=== PATIENT | male | born 1960 | race Caucasian/White ===

== ENCOUNTER 2020-12-28 15:00 | Outpatient (CLI) | payer OTHER, SELFPAY | END 2020-12-28 15:01 | disposition home or self-care (01) | LOC: ANHCOVIDVC 15:00 | PROVIDERS: PCP Internal Medicine | DX: Z23 Encounter for immunization (principal) | CPT/HCPCS: 0001A; 91300 ==

== ENCOUNTER 2021-01-18 14:57 | Outpatient (CLI) | payer OTHER, SELFPAY | END 2021-01-18 14:58 | disposition home or self-care (01) | LOC: ANHCOVIDVC 14:57 | PROVIDERS: PCP Internal Medicine | DX: Z23 Encounter for immunization (principal) | CPT/HCPCS: 0002A; 91300 ==

== ENCOUNTER → 2021-05-17 15:49 | Outpatient (CLI) | payer OTHER, SELFPAY ==
--- NOTE | ~2021-05-17 | CT_ITS ---
EXAMINATION:CT lung screening DATE: 05/17/2021 16:01 INDICATION: Personal history of nicotine dependence. TECHNIQUE: Computed tomography (CT) of the chest was performed without intravenous contrast. Automate d exposure control and iterative reconstruction technique were employed. The dose-length product (DLP ) was 177.11 mGy-cm. COMPARISON: Chest CT 09/22/2018 FINDINGS: There is mild emphysema. A calcified left lung nodule is consistent with old granulomatous disease. There is mild atelectasis in lingula. No pleural effusion. The heart size is normal. There a re coronary artery calcifications. No pericardial effusion. There are changes of cholecystectomy. The re is mild thoracic spondylosis. There is mild chronic anterior wedging of multiple midthoracic verte bral bodies. IMPRESSION: 1. Lung-RADS category 1: Negative. Continue annual screening with noncontrast low-dose chest CT in 12 months. Reviewed, dictated and finalized at location A. IMPRESSION: 1. Lung-RADS category 1: Negative. Continue annual screening with noncontrast l ow-dose chest CT in 12 months.
== END ==
PROVIDERS: PCP Internal Medicine; Visit Provider Internal Medicine
DX: Z12.2 Encounter for screening for malignant neoplasm of respiratory organs (principal); Z87.891 Personal history of nicotine dependence
CPT/HCPCS: 71271

== ENCOUNTER → 2021-07-09 10:35 | Outpatient (REF) | payer OTHER, SELFPAY | LOC: ANHLAB 10:35 | PROVIDERS: PCP Internal Medicine; Visit Provider Nurse Practitioner | DX: D49.2 Neoplasm of unspecified behavior of bone, soft tissue, and skin (principal) | CPT/HCPCS: 88305 ==

== ENCOUNTER → 2021-08-05 09:56 | Outpatient (CLI) | payer OTHER, SELFPAY ==
[2021-08-05 12:45] LABS: Influenza Control Positive
[2021-08-05 18:36] LABS: SARS-CoV-2 RNA PCR Negative
== END ==
PROVIDERS: PCP Internal Medicine; Visit Provider Internal Medicine
DX: R05.9 Cough, unspecified (principal); R52 Pain, unspecified; Z20.822 Contact with and (suspected) exposure to COVID-19
CPT/HCPCS: 87804; C9803; U0003; U0005

== ENCOUNTER → 2021-08-12 08:16 | Outpatient (CLI) | payer OTHER, SELFPAY ==
[2021-08-12 20:05] LABS: SARS-CoV-2 RNA PCR Negative
== END ==
PROVIDERS: PCP Internal Medicine; Visit Provider Internal Medicine
DX: R68.89 Other general symptoms and signs (principal); Z20.822 Contact with and (suspected) exposure to COVID-19
CPT/HCPCS: C9803; U0003; U0005

== ENCOUNTER 2021-08-13 15:31 | Outpatient (CLI) | payer OTHER, SELFPAY ==
--- NOTE | ~2021-08-13 | XR_ITS ---
XR chest 2V 08/13/2021 15:57 Indication: Cough. Hypertension. Procedure: 2 view chest Comparison: 11/08/2018 Findings: Heart size normal. There is left basilar atelectasis/scarring. No focal pneumonia, edema, p leural effusion or pneumothorax. No acute osseous abnormality. There are cholecystectomy clips. Impression: 1: Left basilar atelectasis/scarring. Reviewed, dictated and finalized at location B. GHT ROUTER Impression: 1: Left basilar atelectasis/scarring.
== END 2021-08-13 15:32 | disposition home or self-care (01) ==
LOC: ANHIMG 15:39
PROVIDERS: PCP Internal Medicine; Visit Provider Internal Medicine
DX: R05.9 Cough, unspecified (principal); R91.8 Other nonspecific abnormal finding of lung field
CPT/HCPCS: 71046

== ENCOUNTER → 2022-04-18 01:38 | Outpatient (CLI) | payer OTHER, SELFPAY ==
[2022-04-18 12:16] LABS: SARS-CoV-2 RNA PCR Negative
== END ==
PROVIDERS: PCP Internal Medicine; Visit Provider Internal Medicine
DX: R68.89 Other general symptoms and signs (principal); Z20.822 Contact with and (suspected) exposure to COVID-19
CPT/HCPCS: C9803; U0003; U0005

== ENCOUNTER → 2022-06-02 14:43 | Outpatient (CLI) | payer OTHER, SELFPAY ==
--- NOTE | ~2022-06-02 | CT_ITS ---
EXAMINATION: CT lung screening DATE: 06/02/2022 15:05 INDICATION: Personal history of tobacco dependence. Lung cancer screening. TECHNIQUE: Computed tomography (CT) of the chest was performed without intravenous contrast. The dose -length product was 202.54 mGy-cm. Automated exposure control and iterative reconstruction technique were employed. COMPARISON: CT dated 05/17/2021 FINDINGS: Heart size normal. No thoracic lymphadenopathy. No significant pleural or pericardial effus ion. Upper abdomen is unremarkable. There are cholecystectomy clips. Calcified granuloma in the left lower lobe. No endobronchial lesions. No pneumothorax. No focal airspace disease. No noncalcified pul monary nodules. Mild thoracic spondylosis. Mild chronic anterior wedging of multiple midthoracic vert ebra.. IMPRESSION: 1. Lung-RADS category 1: Negative. Continue annual screening with noncontrast low-dose chest CT in 12 months. Reviewed, dictated and finalized at location A. IMPRESSION: 1. Lung-RADS category 1: Negative. Continue annual screening with noncontrast l ow-dose chest CT in 12 months.
== END ==
PROVIDERS: PCP Internal Medicine; Visit Provider Internal Medicine
DX: Z12.2 Encounter for screening for malignant neoplasm of respiratory organs (principal); Z87.891 Personal history of nicotine dependence
CPT/HCPCS: 71271

== ENCOUNTER → 2023-07-06 14:44 | Outpatient (CLI) | payer BC, SELFPAY ==
--- NOTE | ~2023-07-06 | CT_ITS ---
EXAMINATION: CT lung screening DATE: 07/06/2023 14:59 INDICATION: Personal history of nicotine dependence TECHNIQUE: Computed tomography (CT) of the chest was performed without intravenous contrast. The dose -length product was 164.87 mGy-cm. Automated exposure control and iterative reconstruction technique were employed. COMPARISON: CT dated 06/02/2022 FINDINGS: No thoracic lymphadenopathy. Heart size normal. No significant pleural or pericardial effus ion. Status post cholecystectomy. Calcified granulomas in the spleen. Mild atherosclerosis. No focal airspace consolidation. No endobronchial lesions. There is emphysema. No pneumothorax. Calcified gran uloma left lower lobe. Mild thoracic spondylosis. Accentuated kyphosis. IMPRESSION: 1. Lung-RADS category 1: Negative. Continue annual screening with noncontrast low-dose chest CT in 12 months. Reviewed, dictated and finalized at location L. IMPRESSION: 1. Lung-RADS category 1: Negative. Continue annual screening with noncontrast l ow-dose chest CT in 12 months.
== END ==
PROVIDERS: PCP Nurse Practitioner; Visit Provider Nurse Practitioner
DX: G45.9 Transient cerebral ischemic attack, unspecified (principal); Z87.891 Personal history of nicotine dependence
CPT/HCPCS: 71271

== ENCOUNTER 2023-07-08 15:37 | Outpatient (CLI) | payer BC, SELFPAY ==
--- NOTE | ~2023-07-08 | US_ITS ---
EXAMINATION: US carotid duplex BI DATE: 07/08/2023 16:23 INDICATION: TIA TECHNIQUE: Grayscale, color Doppler, and pulsed Doppler images of the cervical carotid arteries were obtained. The degree of vessel stenosis is placed in one of the following categories: normal, <50%, 5 0-69%, >=70% but less than near-occlusion, near-occlusion, or total occlusion. Note that percent sten osis relative to normal distal artery lumen diameter is indirectly measured from velocity measurement s as described by Jose, et al. Radiology 2003; 229:340-346. Notes: Normal: Peak systolic velocity <125 centimeters/sec and no plaque <50%. Peak systolic velocity <125 ( EDV <40; ICA/CCA PSV ratio <2.0; used these factors only a tandem lesions or low cardiac output or co ntralateral disease) 50-69 %: PSV 125-230 (EDV 40-100; ratio 2-4) >= 70% but less than near occlusion: PSV greater than 230 (EDV > 100; ratio> 4.0) Near Occlusion: PSV that is variable; markedly narrowed lumen Occlusion: Absent flow on color/spectral Doppler and no lumen on lyn scale. COMPARISON: None. FINDINGS: RIGHT: The right common carotid artery (CCA) peak systolic velocity (PSV) is 69 cm/s. The right internal car otid artery (ICA) PSV is 55 cm/s. The right ICA end-diastolic velocity (EDV) is 26 cm/s. The right IC A/CCA PSV ratio is 0.8. The external carotid artery (ECA) PSV is 49 cm/s. There is antegrade flow in the right vertebral artery. LEFT: The left CCA PSV is 76 cm/s. The left ICA PSV is 52 cm/s. The left ICA EDV is 23 cm/s. The left ICA/C CA PSV ratio is 0.7. The ECA PSV is 46 cm/s. There is antegrade flow in the left vertebral artery. IMPRESSION: 1. Less than 50% stenosis in the right internal carotid artery by sonographic criteria. 2. Less than 50% stenosis in the left internal carotid artery by sonographic criteria. Reviewed, dictated and finalized at location B. IMPRESSION: 1. Less than 50% stenosis in the right internal carotid artery by sonographic qasim santiago. 2. Less than 50% stenosis in the left internal carotid artery by sonographic elías pantoja.
== END 2023-07-08 15:38 | disposition home or self-care (01) ==
PROVIDERS: PCP Nurse Practitioner; Visit Provider Nurse Practitioner
DX: I65.23 Occlusion and stenosis of bilateral carotid arteries (principal)
CPT/HCPCS: 93880

== ENCOUNTER 2024-09-27 01:45 | Day surgery (SDC) | payer BC, SELFPAY ==
[2024-08-26 14:35] VITALS: BMI 30.2
--- NOTE | 2024-09-18 13:28 | SUR.PREOP ---
Called pt to cancel his procedure on 09/20 due to provider availability. Pt rescheduled to 12/13 at 1030.Pt request an earlier date if possible. Told pt we would call if we had a cancellation.
[2024-09-22 15:22] VITALS: BMI 30.2
[2024-09-27] VITALS (8 sets, daily range): BP systolic 122–186; BP diastolic 84–150; PULSE 68–85; RESP 16–20; TEMP 35.9; O2SAT 98–100; BMI 30.2
--- NOTE | 2024-09-27 08:10 | P.PNAN_ITS ---
Anes - Initial Pre Proc Eval Procedure: Operation Date: 09/27/24 09:00 Proposed Procedures p Screening Colonoscopy - Sagar Gomez MD Date/Time: 09/27/24 08:10 Surgeon: Sagar Gomez MD Pre Op Diagnosis: screening malignant neoplasm colon Patient Data Age: 63 Gender: M Height: 1.75 m Weight: 92.7 kg Last Vital Signs Temp 35.9 C L 09/27/24 08:04 Pulse 85 09/27/24 08:04 Resp 20 09/27/24 08:04 BP 173/100 H 09/27/24 08:04 Pulse Ox 100 09/27/24 08:04 O2 Del Method Room Air 09/27/24 08:04 Allergies Allergy/AdvReac Type Severity Reaction Status Date / Time No Known Allergies Allergy Verified 09/27/24 08:02 Home Medications ?Medication ?Instructions ?Recorded ?Confirmed ?Type cholecalciferol (vitamin D3) 250 250 mcg PO DAILY 05/14/22 09/27/24 History mcg (10,000 unit) capsule niacin 500 mg tablet 500 mg PO DAILY 05/14/22 09/27/24 History omega-3 fatty acids-fish oil 360 1 cap PO DAILY 05/14/22 09/27/24 History mg-1,200 mg capsule (Fish Oil) aspirin 81 mg tablet,delayed 81 mg PO DAILY 07/02/23 09/27/24 History release metoprolol succinate 25 mg 25 mg PO DAILY #90 tabs 07/02/23 09/27/24 Rx tablet,extended release 24 hr hydrochlorothiazide 25 mg tablet See Rx Instructions .Route 01/21/24 09/27/24 Rx .COMPLEX #90 tabs pantoprazole 40 mg tablet,delayed See Rx Instructions .Route 04/22/24 09/27/24 Rx release .COMPLEX #90 tabs losartan 100 mg tablet 100 mg PO DAILY #90 tabs 06/27/24 09/27/24 Rx rosuvastatin 20 mg tablet (Crestor) 20 mg PO DAILY #90 tabs 07/08/24 09/27/24 Rx verapamil 240 mg tablet,extended See Rx Instructions .Route 07/13/24 09/27/24 Rx release .COMPLEX #90 tabs alprazolam 1 mg tablet 1 mg PO TID PRN anxiety #90 tabs 08/29/24 09/27/24 Rx mecobalamin (vitamin B12) 5,000 5,000 mcg PO DAILY 08/29/24 09/27/24 History mcg chewable tablet Patient hx anesthesia problems: none Family hx anesthesia problems: none Results Review: All pre-operative results and documents have been reviewed as part of the pre- operative evaluation. [facility] Past Medical History Medical History Tinnitus of both ears Thrombosed external hemorrhoid Family history of diabetes mellitus ETOH abuse Hypogonadism in male Cough Body aches Skin lesion BMI 30.0-30.9,adult Annual physical exam History of TIA (transient ischemic attack) GERD (gastroesophageal reflux disease) Vitamin D deficiency Elevated glucose Encounter for routine adult health examination with abnormal findings Tobacco abuse Hearing loss Encounter for preventive health examination Personal history of nicotine dependence BMI 27.0-27.9,adult Changing skin lesion Abnormal finding of blood chemistry Encounter for special screening examination for neoplasm of prostate BMI 29.0-29.9,adult Encounter for routine adult health examination without abnormal findings Family History Family History Mother Hypertension Social History Social History Smoking status: Former smoker Tobacco type: cigarettes Smoking end date: 04/14/19 Alcohol intake: never Alcohol use details: quit drinking Substance use: never Substance use type: does not use Do You Feel Safe in your Home?: Yes Lack of Transportation: No Lack of Food: Never True Current Housing: I Have Housing Concerned About Future Housing: No Difficulty Paying Gas/Electric Bills: No Difficulty Paying for Meds: No Currently Unemployed: No Education: Trade/Vocational Certificate Difficulty w/ Childcare or Family Care: No Living arrangements: alone Gender identity (if verbalized by the patient): Male Spiritual care concerns: No Anes - Eval Final PreProcedure Day of Procedure 09/27/24 08:10 Patient weight: obese Heart: regular rate and rhythm Lungs: clear to auscultation Airway: Mallampati scale class II Neurological: alert and oriented Last oral intake: >/= 8 hours ASA classification: III Emergent: no Anesthetic plan: proceed Anesthesia type and monitoring: general GIVS and standard monitoring Results Review: All pre-operative results and documents have been reviewed as part of the pre- operative evaluation. Informed Consent: The patient's anesthetic plan and its attendant risks and benefits were discussed with the patient/family/POA. Questions were solicited and answers provided to the satisfaction of the patient/family/POA.
[2024-09-27] MEDS: LACTATED RINGERS 1,000 ML 150 ML IV CONT (08:16)
--- NOTE | 2024-09-27 08:51 | SUR.PREOP ---
Dr. Bunch made aware of elevated bp. Pt very anxious. No new orders.
--- NOTE | 2024-09-27 08:58 | PM.HPGS ---
History of Present Illness History of Present Illness Consent: Risks, benefits, and alternatives have been discussed and questions answered. Patient agrees to proceed with procedure. Chief complaint: screening malignant neoplasm colon Narrative: Ignacio Silvestre is a 63 year old male here for screening colonoscopy Review of Systems Review of Systems: All systems reviewed & are unremarkable except as noted in HPI and below PMFSH Past Medical History Medical History Tinnitus of both ears Thrombosed external hemorrhoid Family history of diabetes mellitus ETOH abuse Hypogonadism in male Cough Body aches Skin lesion BMI 30.0-30.9,adult Annual physical exam History of TIA (transient ischemic attack) GERD (gastroesophageal reflux disease) Vitamin D deficiency Elevated glucose Encounter for routine adult health examination with abnormal findings Tobacco abuse Hearing loss Encounter for preventive health examination Personal history of nicotine dependence BMI 27.0-27.9,adult Changing skin lesion Abnormal finding of blood chemistry Encounter for special screening examination for neoplasm of prostate BMI 29.0-29.9,adult Encounter for routine adult health examination without abnormal findings Family History Family History Mother Hypertension Social History Social History Smoking status: Former smoker Tobacco type: cigarettes Smoking end date: 04/14/19 Alcohol intake: never Alcohol use details: quit drinking Substance use: never Substance use type: does not use Do You Feel Safe in your Home?: Yes Lack of Transportation: No Lack of Food: Never True Current Housing: I Have Housing Concerned About Future Housing: No Difficulty Paying Gas/Electric Bills: No Difficulty Paying for Meds: No Currently Unemployed: No Education: Trade/Vocational Certificate Difficulty w/ Childcare or Family Care: No Living arrangements: alone Gender identity (if verbalized by the patient): Male Spiritual care concerns: No Meds Home Medications and Allergies Home Medications ?Medication ?Instructions ?Recorded ?Confirmed ?Type cholecalciferol (vitamin D3) 250 250 mcg PO DAILY 05/14/22 09/27/24 History mcg (10,000 unit) capsule niacin 500 mg tablet 500 mg PO DAILY 05/14/22 09/27/24 History omega-3 fatty acids-fish oil 360 1 cap PO DAILY 05/14/22 09/27/24 History mg-1,200 mg capsule (Fish Oil) aspirin 81 mg tablet,delayed 81 mg PO DAILY 07/02/23 09/27/24 History release metoprolol succinate 25 mg 25 mg PO DAILY #90 tabs 07/02/23 09/27/24 Rx tablet,extended release 24 hr hydrochlorothiazide 25 mg tablet See Rx Instructions .Route 01/21/24 09/27/24 Rx .COMPLEX #90 tabs pantoprazole 40 mg tablet,delayed See Rx Instructions .Route 04/22/24 09/27/24 Rx release .COMPLEX #90 tabs losartan 100 mg tablet 100 mg PO DAILY #90 tabs 06/27/24 09/27/24 Rx rosuvastatin 20 mg tablet (Crestor) 20 mg PO DAILY #90 tabs 07/08/24 09/27/24 Rx verapamil 240 mg tablet,extended See Rx Instructions .Route 07/13/24 09/27/24 Rx release .COMPLEX #90 tabs alprazolam 1 mg tablet 1 mg PO TID PRN anxiety #90 tabs 08/29/24 09/27/24 Rx mecobalamin (vitamin B12) 5,000 5,000 mcg PO DAILY 08/29/24 09/27/24 History mcg chewable tablet Allergies Allergy/AdvReac Type Severity Reaction Status Date / Time No Known Allergies Allergy Verified 09/27/24 08:02 Vital Signs Vital Signs - 24 hr 09/27/24 08:04 09/27/24 08:40 Temperature 96.7 F L Pulse Rate 85 Respiratory Rate 20 Blood Pressure 173/100 H 185/110 H Pulse Oximetry 100 Oxygen Delivery Room Air Exam Const: General: comfortable and no acute distress HENMT: Face/Nose/Sinus: Normal nares present Eyes: General: appearance normal, both eyes and all related structures Neck: Neck: no JVD Resp: Auscultation: clear to auscultation bilaterally Cardio: Rate: regular rate Rhythm: regular rhythm GI: Inspection: non-distended GI Palp: Yes Soft to palpation Skin: General skin exam: normal color Neuro: General: gait normal Speech: normal speech Extrem: General: normal to inspection Psych: Mental Status: mental status grossly normal Assessment and Plan Assessment and plan (1) Colon cancer screening: Code(s): Z12.11 - Encounter for screening for malignant neoplasm of colon Status: Acute Assessment and Plan: colonoscopy
[2024-09-27] MEDS: hydrALAZINE HCL 20 MG/ML VIAL IV PUSH (09:47)
--- NOTE | 2024-09-27 09:52 | SUR.PHASEII ---
0940: DR GRIDER NOTIFIED OF PT'S POST OP VS: B/P 162/112 HR 67, B/P 186/150 HR 68, B/P 177/114 HR 70. NEW MEDICATION ORDER RECEIVED AND GIVEN PER ORDER. PT AWAKE AND TALKING WITHOUT SYMPTOMS. 1000: UPDATED PT'S DAUGHTER GUSTAVO PER PT REQUEST. 1005: PT BLOOD PRESSURE 146/91, HR 68. DR GRIDER NOTIFIED, ORDER RECEIVED TO DISCHARGE PT. PT DISCHARGED WITH INSTRUCTIONS, STATES UNDERSTANDING.
== END 2024-09-27 10:12 | disposition home or self-care (01) ==
PROVIDERS: PCP Nurse Practitioner; Visit Provider Internal Medicine Gastroenterology
PROC: 0DJD8ZZ Inspection of Lower Intestinal Tract, Via Natural or Artificial Opening Endoscopic (ICD-10-PCS; CPT 45378; principal; 2024-09-27 09:00)
DX: Z12.11 Encounter for screening for malignant neoplasm of colon (principal); D12.2 Benign neoplasm of ascending colon; K63.5 Polyp of colon; K64.8 Other hemorrhoids; K57.30 Diverticulosis of large intestine without perforation or abscess without bleeding; E29.1 Testicular hypofunction; K21.9 Gastro-esophageal reflux disease without esophagitis; E55.9 Vitamin D deficiency, unspecified; E66.9 Obesity, unspecified; Z68.30 Body mass index [BMI] 30.0-30.9, adult; Z79.82 Long term (current) use of aspirin; Z87.891 Personal history of nicotine dependence; Z86.73 Personal history of transient ischemic attack (TIA), and cerebral infarction without residual deficits
CPT/HCPCS: 45385; 88305; J0360; J2003; J2704; J7120

== ENCOUNTER 2024-10-05 14:18 | Outpatient (CLI) | payer BC, SELFPAY ==
--- NOTE | ~2024-10-05 | CT_ITS ---
EXAMINATION:CT lung screening DATE: 10/05/2024 14:33 INDICATION: Personal history of nicotine dependence. Smoker who quit 5 years ago with 23 pack year hi story. TECHNIQUE: Computed tomography (CT) of the chest was performed without intravenous contrast. Automate d exposure control and iterative reconstruction technique were employed. The dose-length product (DLP ) was 146.24 mGy-cm. COMPARISON: Chest CT 07/06/2023 FINDINGS: There is mild emphysema. A calcified left lung nodule is consistent with old granulomatous disease. No pleural effusion. The heart size is normal. No pericardial effusion. There is diffuse hep atic steatosis. There are changes of cholecystectomy. There is mild bilateral gynecomastia. There is mild thoracic spondylosis. There is mild chronic anterior wedging of multiple vertebral bodies. IMPRESSION: 1. Lung-RADS category 1: Negative. Continue annual screening with noncontrast low-dose chest CT in 12 months. Reviewed, dictated and finalized at location B. E ARTIST IMPRESSION: 1. Lung-RADS category 1: Negative. Continue annual screening with noncontrast l ow-dose chest CT in 12 months.
== END 2024-10-05 14:19 | disposition home or self-care (01) ==
LOC: GOSHIMG 14:19
PROVIDERS: PCP Nurse Practitioner; Visit Provider Nurse Practitioner
DX: Z12.2 Encounter for screening for malignant neoplasm of respiratory organs (principal); Z87.891 Personal history of nicotine dependence
CPT/HCPCS: 71271

== ENCOUNTER 2025-01-13 09:30 | Outpatient (RCR) | payer BC, SELFPAY ==
--- NOTE | 2025-01-06 14:36 | OPREHPOC ---
Outpatient Therapy Plan of Care This is a Multidisciplinary Plan of Care that may contain components documented by all disciplines (PT, OT, and ST.) PT Problem 1 PT Problem #1 Knowledge Deficit PT Goal 1 Goal / Goal Update Letts with HEP Target Visit 4 PT Goal 2 Goal / Goal Update Report no pain greater than 2/10 for 2 consecutive weeks Target Visit 8 PT Problem 2 PT Problem #2 Impaired Range of Motion PT Goal 1 Goal / Goal Update 1. Improve andressa hamstring restriction to -25 degrees or better 2. Improve andressa piriformis restriction to minimal 3. Improve andressa andressa hip abduction ROM to 40 degrees to improve capsular mobility Target Visit 8 PT Problem 3 PT Problem #3 Impaired Gait PT Goal 1 Goal / Goal Update Ambulate with even stride length bilaterally Target Visit 8
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
--- NOTE | 2025-01-17 14:13 | PTOPDC ---
Assessment and note entered by Toño Chavez, PT Evaluation Information Assessment Status Discharge - Pt Not Present ICD-10 Condition Codes (PT) Abnormalities of gait and mobility R26.9 Onset 2+ years Subjective Information Patient called requesting discharge from therapy due to insurance cost. Plans to continue HEP and complimentary of staff. Assessment PT Clinical Summary Patient to be discharged at this time per patient request. Patient was present for 2 visits. Please refer to evaluation note for discharge status. Plan of Care PT Services Indicated Yes
== END 2025-01-17 14:39 | disposition home or self-care (01) ==
LOC: ANHGOSHPT 09:30
PROVIDERS: PCP Nurse Practitioner; Visit Provider Nurse Practitioner
DX: R26.89 Other abnormalities of gait and mobility (principal)
CPT/HCPCS: 97110; 97140; 97161